=== PATIENT | female | born 1950 | race Caucasian/White ===

== ENCOUNTER → 2016-08-25 | Outpatient (CLI) | payer OTHER | LOC: CIMAGING 10:19 | DX: Z12.31 Encounter for screening mammogram for malignant neoplasm of breast (principal) | CPT/HCPCS: G0202 ==

== ENCOUNTER → 2017-03-31 | Outpatient (CLI) | payer OTHER | LOC: CIMAGING 14:15 | PROVIDERS: ATTEND Internal Medicine Cardiovascular Disease | DX: R07.9 Chest pain, unspecified (principal) | CPT/HCPCS: 75571-PO ==

== ENCOUNTER 2017-04-07 07:44 | Inpatient (IN) | payer OTHER ==
[2017-04-07] MEDS ORDERED: NS 1,000 ML IV ONE (07:46)
[2017-04-07] MEDS ORDERED: FAMOTIDINE 20 MG TAB PO ONE (07:46)
[2017-04-07] MEDS ORDERED: DIAZEPAM 5 MG TAB PO ONE (07:46)
[2017-04-07] MEDS ORDERED: ASPIRIN EC 325 MG TAB PO ONE ×2 (07:46→08:32)
[2017-04-07] MEDS ORDERED: diphenhydrAMINE 25 MG CAP PO ONE ×2 (07:46→08:32)
--- NOTE | 2017-04-07 08:18 | CPEKG ---
Heart Rate: 71 RR Interval: 845 P-R Interval: 160 QRSD Interval: 96 QT Interval: 416 QTC Interval: 453 P Clinton: 64 QRS Clinton: 4 T Wave Clinton: 46 EKG Severity - NORMAL ECG - EKG Impression: SINUS RHYTHM Electronically Signed By: Remigio Miller 07-Apr-2017 09:29:25
[2017-04-07] MEDS ORDERED: FAMOTIDINE 20 MG TAB ONE (08:32)
[2017-04-07] MEDS ORDERED: DIAZEPAM 5 MG TAB ONE (08:32)
[2017-04-07 08:35] LABS: PLATELET COUNT 311 10^3/uL (150-400)
[2017-04-07 08:45] LABS: INR 0.92 (0.83-1.16); PROTIME(PATIENT) 12.6 SEC (12.0-15.0)
[2017-04-07] MEDS ORDERED: fentaNYL 100 MCG/2 ML INJ ONE (08:48)
[2017-04-07] MEDS ORDERED: VERAPAMIL 5 MG/2 ML VIAL ONE (08:48)
[2017-04-07] MEDS ORDERED: HEPARIN 10,000 UNIT/10 ML MDV ONE (08:48)
[2017-04-07] MEDS ORDERED: LIDOCAINE 1% 300 MG/30 ML SDV ONE (08:48)
[2017-04-07] MEDS ORDERED: MIDAZOLAM 2 MG/2 ML VIAL ONE (08:48)
[2017-04-07] MEDS ORDERED: IOPAMIDOL (ISOVUE-370) 150 ML BTL IV ONE (08:49)
--- NOTE | 2017-04-07 09:27 | PDHPUP ---
History & Physical Update H&P update statement: This history and physical update is based on an assessment of the patient which was completed after admission or registration (within 24 hours), but prior to the surgery/procedure.
--- NOTE | 2017-04-07 09:27 | PDPROPOC ---
Sedation Plan of Care Sedation Plan of Care: vital signs stable, mental status noted, patient educated of risks, benefits, alternatives, patient can tolerate sedation ASA Classification: ASA 2 Planned drugs: fentanyl, midazolam Mallampati Score: Class 2 Mallampati Reference Image: Patient passed 3-3-2 rule?: Yes
[2017-04-07] MEDS ORDERED: NITROGLYCERIN 0.4 MG BTL SL PRN (10:48)
[2017-04-07] MEDS ORDERED: ATROPINE SULFATE 1 MG/10 ML SYR IVP PRN (10:48)
[2017-04-07] MEDS ORDERED: ONDANSETRON 4 MG/2 ML VIAL IVP PRN (10:48)
--- NOTE | 2017-04-07 10:54 | PDDXCAT ---
Diagnostic Cath Note - . Date: 04/07/17 Pattern Generator Operator: Serjio Indication: CCC Class III and IV angina on medical treatment - Procedure Access: right wrist Procedure: left heart catheterization, coronary angiography - Materials Left Heart Cath size: 5F Left Heart Cath materials: pigtail, other (Site-Seer4) - Findings-Left Heart Catheterization LM: 80% distal stenosis LAD: unobstructed LCX: unobstructed RCA: dominant:30% mid RCA EDP: 15 mmHg LVEF: 70 Wall motion: normal. Dilitation of the ascending aorta. Complications: none Closure method: TR Band Assessment: Critical Left main disease with crescendo angina. Normal LV systolic function. Dilation of the aorta. Plan: Surgical consultation. Patient Problems: Problems Problem Status Onset Left main coronary artery disease Acute Angina pectoris associated with type 2 diabetes mellitus Acute Angina pectoris Acute
[2017-04-07] MEDS ORDERED: NS 1,000 ML IV SCH (11:00)
--- NOTE | 2017-04-07 13:23 | GCON ---
[f rep st] CONSULTATION DATE OF CONSULTATION: 04/07/2017 PREOPERATIVE DIAGNOSES: 1. Unstable angina pectoris with severe left main disease. 2. Moderate enlargement of the ascending aorta, CT scan pending. 3. Diabetes mellitus, on metformin. Last dose on the evening of 04/06. 4. Obesity. 5. Hypertension. 6. Hypercholesterolemia. RECOMMENDATIONS: This patient should undergo coronary artery revascularization with possible resecti on of ascending aorta if appropriate. We will await the results of her CT scan. She is currently st able without chest pain at rest. Given her coronary anatomy and crescendo angina pattern, she should undergo resection of her aorta if appropriate. She did have metformin yesterday evening; otherwise, we would proceed with surgery today. Given her stable situation, we will keep her in-house and proc eed with surgery based on surgical scheduling availability. Risks and complications were reviewed at length with the patient, including bleeding, infection, stroke, heart attack, and ; all less th an 1%. Surgery will be performed by one of [facility]'s surgeons, and they will call with scheduling. Al ternatives include medical therapy, although in this situation, surgery is the 1st option and most ap propriate. The patient was advised of the same. She was advised that stenting is not often done in this situation and that the results are better with bypass surgery, both short and long-term. CHIEF COMPLAINT: A 67-year-old female with a strong family history of coronary disease in her mother , who had coronary disease at age 60. She had crescendo angina symptoms, had abnormal stress test, a nd underwent diagnostic left heart catheterization by Dr. Bassett, which showed distal left main hig h-grade stenosis. Right coronary artery had moderate disease. LV function was impaired. Echo is pe nding. CT scan of the aorta is pending. The cath revealed moderate enlargement of the ascending aor ta on angiography and will be confirmed with CT scanning and addressed appropriately. MEDICATIONS: Aspirin, Crestor, hydrochlorothiazide, lisinopril, and metformin. ALLERGIES: Demerol, no reaction documented. PHYSICAL EXAMINATION: VITAL SIGNS: Blood pressure is 150/94, pulse 86, respirations 14, nonlabored. O2 sat was 92% on room air. HEENT: Normocephalic PERRLA, EOMI. NECK: Without bruit, adenopathy, or thyromegaly. HEART: Rate regular without murmur, S3, or S4. LUNGS: Clear. ABDOMEN: Soft, non tender. Bowel sounds are active. RECTAL/GENITAL: Deferred. EXTREMITIES: Pedal pulses are 1+. No edema. No varicosities. /[id number]/MODL
[2017-04-07] MEDS ORDERED: IOPAMIDOL (ISOVUE 370) 100 ML BTL IV ONE (13:27)
--- NOTE | 2017-04-07 13:58 | ECHO ---
[email or web address] [address] Main: [phone] Fax: Transthoracic Echocardiogram Name: KEATON CAMP MR#: [id number] Study Date: 04/07/2017 Study Time: 11:36 AM Date of : 1950 Age: 67 year(s) Height: 167.6 cm (66 in.) Weight: 88.45 kg (195 lb.) BSA: 1.98 m2 Gender: Female Examination: Echo Indication: Eval AV structure with dilitation of the root/pre op CABG Image Quality: Contrast: Requested by: Dominic Bassett BP: 139 mmHg/65 mmHg Heart Rate: Rhythm: Indication: Eval AV structure with dilitation of the root/pre op CABG Procedure Staff Clinical Laboratory Service Teacher: Clotilde Nath Reading Physician: Dominic Bassett Requesting Provider: Conclusions: No pericardial effusion. Concentric left ventricular hypertrophy. Ejection fraction 60-65%. Calcified mitral valve annulus. Trileaflet aortic valve. Measurements: Chambers Valvular Assessment AV/MV Valvular Assessment TV/PV Normal Normal Normal Name Value Range Name Value Range Name Value Range Ao Nayely (MM): 2.8 cm (2.2 cm-3.7 AV meanP mmHg ( - ) TR Vmax: 1.89 mm/s ( - ) cm) MV E Vmax: 0.76 m/s ( - ) TR PGmax: 14 mmHg ( - ) IVSd (2D): 0.9 cm (0.6 cm-1.1 MV A Vmax: 0.73 m/s ( - ) syst. PAP: 19 mmHg ( - ) cm) MV E/A: 1.04 ( - ) LVDd (2D): 3.7 cm (3.9 cm-5.3 cm) LVDs (2D): 2.5 cm (2.1 cm-4 cm) LVPWd (2D): 0.9 cm ( - ) LVEF (2D): 64 (>=54 %) EF Range: 60-65 % Continued Measurements: Chambers Valvular Assessment AV/MV Valvular Assessment TV/PV Name Value Name Value Name Value LADs: 3.3 cm MV E' Septal: 0.06 m/s CVP (est.): 5 mmHg LADs Lon.0 cm MV E/E' Septal: 12.70 LA Area: 17.7 cm2 MV E/E' Lateral: 8.80 Additional Vessels Patient: KEATON CAMP Study Date: 04/07/2017 Page 1 of 2 11:36 AM Name Value Ao Ascendin.3 cm Findings: Left Ventricle: Normal size left ventricle. Mild concentric LV hypertrophy. Normal global systolic LV function. The ejection fraction is estimated to be 60-65 %. Right Ventricle: Normal size right ventricle. Left Atrium: The left atrium is normal in size. Right Atrium: The right atrium is normal in size. Mitral Valve: Trivial mitral valve regurgitation. Calcification of the posterior mitral leaflet.. Aortic Valve: The aortic valve is normal in appearance and function. Tricuspid Valve: The tricuspid valve is normal in appearance and function. Mild tricuspid regurgitation is present. Pulmonic Valve: The pulmonic valve is normal in appearance and function. Aorta: Normal size aortic root measuring 2.8 cm. Normal size ascending aorta measuring 3.3 cm. Pericardium: No pericardial effusion. (No Signature Object) Patient: KEATON CAMP Study Date: 04/07/2017 Page 2 of 2 11:36 AM [id number]
[2017-04-07] MEDS: METOPROLOL TARTRATE 50 MG TAB PO SCH ×2 (14:50→21:58)
[2017-04-07] MEDS: HEPARIN/DEXTROSE 500 ML IV SCH (15:04)
[2017-04-08] MEDS: ATORVASTATIN CALCIUM 40 MG TAB PO SCH (08:47)
[2017-04-08] MEDS: METOPROLOL TARTRATE 50 MG TAB PO SCH (08:47)
--- NOTE | 2017-04-08 10:11 | ASMTCASEMG ---
Living Arrangements What is your living Answers: With Spouse arrangement? Who do you live with? Type Of Residence What kind of residence do Answers: House you live in? Discharge Plan Comments Coordination Status Comments Notes: Pt is a 67 y/o female that will have an open heart surgery tomorrow. Needs are TBD at this time. CM to follow for d/c needs. Plan: TBD Date Signed: 04/08/2017 10:11 AM Electronically Signed By:SEAN De La O
[2017-04-08] MEDS: HEPARIN/DEXTROSE 500 ML IV SCH (10:23)
[2017-04-08] MEDS ORDERED: D50W 25 GM/50 ML SYR IVP PRN (11:44)
[2017-04-08] MEDS: LISINOPRIL 40 MG TAB PO SCH (13:02)
[2017-04-08] MEDS: ROSUVASTATIN CALCIUM 20 MG TAB PO SCH (13:03)
[2017-04-08] MEDS: METOPROLOL SUCCINATE XR 25 MG TAB PO SCH (13:06)
[2017-04-08] MEDS: INSULIN LISPRO 100 UNIT/ML SC SCH ×2 (13:07→17:58)
--- NOTE | 2017-04-08 14:16 | SOAPPROG ---
SOAP Progress Note Assessment/Plan: Assessment: 1. Left main coronary artery disease. 2. Diabetes 3. Hyperlipidemia 4. Hypertension Impression: Awaiting coronary artery bypass grafting. Patient is delayed secondary to metformin. She is free of angina or heart failure. Stable on heparin. 04/08/17 14:15 Subjective: Cardiac review of systems is negative for chest pain, shortness of breath, PND , orthopnea, palpitations, syncope, near syncope, edema. Objective: Vital Signs Temp Pulse Resp BP Pulse Ox 36.7 C 53 L 20 139/73 H 95 04/08/17 07:28 04/08/17 13:00 04/08/17 13:00 04/08/17 13:00 04/08/17 13:00 Laboratory Results 04/07/17 08:25 04/07/17 08:25 04/07/17 04/08/17 04/09/17 05:59 05:59 05:59 Intake Total 1223.7 Output Total 1 Balance 1222.7 PT 12.6 SEC (12.0-15.0) 04/07/17 08:25 INR 0.92 (0.83-1.16) 04/07/17 08:25 Laboratory Tests 04/07/17 08:25 LDL Cholesterol, Calc 82 Physical Exam - Physical Exam General Appearance: alert, no apparent distress EENT: PERRL/EOMI Neck: non-tender, full range of motion, supple Respiratory: chest non-tender, lungs clear Cardiac/Chest: normal peripheral pulses, regular rate, rhythm, No gallop, No JVD Abdomen: normal bowel sounds, non-tender, soft Back: Normal inspection Skin: warm/dry Lymphatic: no adenopathy Extremities: normal range of motion Neuro/Psych: no motor/sensory deficits, alert ICD10 Worksheet Patient Problems: Problems Problem Status Onset Left main coronary artery disease Acute Angina pectoris associated with type 2 diabetes mellitus Acute Angina pectoris Acute Past Medical History - Medical/Surgical History Hx Asthma: No Hx Chronic Respiratory Disease: No Hx Cardiac Disease: Yes Hx Diabetes: Yes Hx Renal Disease: No Hx Alcoholism: No Hx Cirrhosis: No Hx HIV/AIDS: No Hx Splenectomy or Spleen Trauma: No Other PMH: lap kyree, tonsillectomy, knee surgery, diabetes - Social History Smoking Status: Never smoked Review of Systems - Review of Systems Constitutional: no symptoms reported EENTM: no symptoms reported Respiratory: no symptoms reported Cardiac: no symptoms reported Gastrointestinal/Abdominal: no symptoms reported Genitourinary: no symptoms Musculoskelatal: no symptoms Skin: no symptoms Neurological: no symptoms Hematologic/Lymphatic: no symptoms reported Immunologic/allergic: no symptoms reported
[2017-04-08] MEDS: MUPIROCIN 2% 22 GM OINT NS SCH (20:52)
[2017-04-08] MEDS ORDERED: TEMAZEPAM 15 MG CAP PO PRN (21:00)
[2017-04-08] MEDS ORDERED: CHLORHEXIDINE GLUC HIBICLENS 118 ML BTL TP SCH (21:00)
[2017-04-09] MEDS ORDERED: TRANEX ACID 1,000 MG/NS 100 ML IV ONE ×2 (06:00)
[2017-04-09] MEDS ORDERED: CITRATE DEXTROSE SOLN 500 ML BAG MISC ONE (06:00)
[2017-04-09] MEDS ORDERED: VERAPAMIL 5 MG, NITROGLYCERIN 2.5 MG, HEPARIN 500 UNIT, SODIUM BICARBONATE 0.2 MEQ in L... MISC ONE (06:00)
[2017-04-09] MEDS ORDERED: SODIUM BICARBONATE 20 MEQ, LIDOCAINE 1% 10 ML in NORMOSOL-R 1,000 ML MISC ONE (06:00)
[2017-04-09] MEDS ORDERED: PAPAVERINE HCL 60 MG in NS 100 ML IV ONE (06:00)
[2017-04-09] MEDS ORDERED: AMINOCAPROIC ACID 5 GM/20 ML VIAL IV ONE (06:00)
[2017-04-09] MEDS ORDERED: INSULIN REGULAR HUMAN 100 UNIT in NS 100 ML IV ONE (06:00)
[2017-04-09] MEDS ORDERED: ceFAZolin 2 GM/SWFI 2 GM/20 ML SYR IVP ONE (06:00)
[2017-04-09] MEDS ORDERED: MANNITOL 25% 12.5 GM/50 ML VIAL IVP ONE (06:00)
[2017-04-09] MEDS ORDERED: TEMAZEPAM 15 MG CAP PO PRN (06:00)
[2017-04-09] MEDS ORDERED: PHENYLEPHRINE HCL 50 MG in NS 250 ML IV ONE (06:00)
[2017-04-09] MEDS ORDERED: ALBUMIN 5% 250 ML BOTTLE IV ONE ×2 (06:28→15:40)
[2017-04-09] MEDS ORDERED: PROTAMINE SULFATE 50 MG/5 ML VIAL IVP ONE (06:28)
[2017-04-09] MEDS ORDERED: MILRINONE/DEXTROSE/100 ML BAG IV ONE (06:29)
[2017-04-09] MEDS ORDERED: NA BICARBONATE 50 MEQ/50 ML VIAL ONE (06:29)
[2017-04-09] MEDS ORDERED: HEPARIN 10,000 UNIT/10 ML MDV ONE (06:29)
[2017-04-09] MEDS ORDERED: LIDOCAINE 2% 100 MG/5 ML SYR ONE (06:29)
[2017-04-09] MEDS ORDERED: DOPamine/DEXTROSE/250 ML BAG IV ONE (06:29)
[2017-04-09] MEDS ORDERED: CALCIUM CHLORIDE 1 GM/10 ML INJ ONE (06:29)
[2017-04-09] MEDS ORDERED: CITRATE DEXTROSE SOLN 500 ML BAG ONE (06:29)
[2017-04-09] MEDS ORDERED: AMIODARONE HCL 150 MG/3 ML VIAL ONE (06:30)
[2017-04-09] MEDS ORDERED: niCARdipine/NACL/200 ML BAG IV ONE (06:30)
[2017-04-09] MEDS ORDERED: methylPREDNISolone SOD SUCC 1 GM/8 ML VIAL ONE (06:30)
[2017-04-09] MEDS ORDERED: MAGNESIUM SULFATE 1 GM/2 ML VIAL ONE (06:30)
[2017-04-09] MEDS ORDERED: ceFAZolin 1 GM VIAL ONE (06:30)
[2017-04-09] MEDS ORDERED: ADENOSINE 6 MG/2 ML VIAL ONE (06:30)
[2017-04-09] MEDS ORDERED: TRANEXAMIC ACID 1,000 MG/10 ML VIAL ONE (06:31)
[2017-04-09] MEDS: LISINOPRIL 40 MG TAB PO SCH (10:14)
[2017-04-09] MEDS: ATORVASTATIN CALCIUM 40 MG TAB PO SCH (10:14)
[2017-04-09] MEDS: INSULIN LISPRO 100 UNIT/ML SC SCH (10:14)
[2017-04-09] MEDS: ROSUVASTATIN CALCIUM 20 MG TAB PO SCH (10:15)
[2017-04-09] MEDS: METOPROLOL TARTRATE 50 MG TAB PO SCH (10:15)
--- NOTE | 2017-04-09 11:31 | PDHPUP ---
History & Physical Update H&P update statement: This history and physical update is based on an assessment of the patient which was completed after admission or registration (within 24 hours), but prior to the surgery/procedure. H&P changes: CTA neg for aortic dilatation. Plan CABG2 with Dr Logan
[2017-04-09] MEDS: MUPIROCIN 2% 22 GM OINT NS SCH ×2 (11:35→22:11)
[2017-04-09] MEDS ORDERED: MIDAZOLAM 2 MG/2 ML VIAL IVP ONE ×2 (11:43→11:45)
--- NOTE | 2017-04-09 11:43 | PDANEPAE ---
ANE History of Present Illness 67 yo for cabg LM cad nl lv htn niddm ANE Past Medical History - Cardiovascular History Hx Hypertension: Yes Hx Chest Pain: Yes Hx Coronary Artery / Peripheral Vascular Disease: Yes - Pulmonary History Hx Oxygen in Use at Home: No Hx Sleep Apnea: No Sleep Apnea Screening Result - Last Documented: Negative - Endocrine History Hx Diabetes: Yes - Chronic Pain History Chronic Pain: Yes ANE Review of Systems Review of Systems: ANE Patient History - Allergies Allergies/Adverse Reactions: meperidine HCl [From Demerol] Allergy (Intermediate, Verified 04/07/17 07:48) Other-Enter Comments - Home Medications Home medications: home medication list seen and reviewed Home Medications: Aspirin EC [Aspirin EC 81 mg (*)] 81 mg PO DAILY 04/06/17 [Last Taken 04/06/17 12:00] Hydrochlorothiazide [HCTZ (*)] 12.5 mg PO DAILY 04/06/17 [Last Taken 04/06/17 21 :00] Lisinopril [Zestril 40 mg (*)] 40 mg PO DAILY 04/06/17 [Last Taken 04/06/17 21: 00] Metoprolol Succinate Xr [Toprol Xl 25 mg (*)] 25 mg PO DAILY 04/06/17 [Last Taken 04/06/17 08:00] Rosuvastatin Calcium [Crestor 20mg (*)] 20 mg PO DAILY 04/06/17 [Last Taken 21:00] metFORMIN HCL [Glucophage 1000 mg] 1,000 mg PO DAILY 04/06/17 [Last Taken 08:00] metFORMIN HCL [Glucophage 500 mg (*)] 500 mg PO DAILY18 04/06/17 [Last Taken 17:00] - NPO status NPO Status: no food or drink >8 hours NPO Since - Liquids (Date): 04/08/17 NPO Since - Liquids (Time): 23:15 NPO Since - Solids (Date): 04/08/17 NPO Since - Solids (Time): 21:10 - Smoking Hx Smoking Status: Never smoked ANE Labs/Vital Signs - Labs Result Diagrams: 04/09/17 03:34 04/09/17 03:34 - Vital Signs Blood Pressure: 160/81 Heart Rate: 71 Respiratory Rate: 16 O2 Sat (%): 96 Height: 5 ft 6 in Weight: 87.5 kg ANE Physical Exam - Airway Neck exam: FROM Mallampati Score: Class 2 Mouth exam: normal dental/mouth exam - Pulmonary Pulmonary: no respiratory distress - Cardiovascular Cardiovascular: regular rate and rhythym - ASA Status ASA Status: III ANE Anesthesia Plan Anesthesia Plan: general endotracheal anesthesia Lines/Monitors: arterial line, central line, DIANA
[2017-04-09] MEDS ORDERED: VANCOMYCIN 1 GM VIAL ONE ×2 (11:50→13:02)
[2017-04-09] MEDS ORDERED: fentaNYL 250 MCG/5 ML INJ ONE (11:53)
[2017-04-09] MEDS ORDERED: PROPOFOL/EMULSION 500 MG/50 ML BOTTLE IV ONE (11:53)
[2017-04-09] MEDS ORDERED: REMIFENTANIL HCL 1 MG VIAL ONE (11:53)
[2017-04-09] MEDS ORDERED: DEXAMETHASONE 4 MG/ML VIAL ONE ×2 (14:08)
[2017-04-09] MEDS ORDERED: ROCURONIUM 100 MG/10 ML VIAL ONE (14:08)
[2017-04-09] MEDS ORDERED: epHEDrine SULFATE 10 MG/ML SYR ONE ×2 (14:27→14:29)
[2017-04-09] MEDS ORDERED: HYDROmorphONE/DILAUDID 2 MG/ML INJ ONE (14:34)
[2017-04-09] MEDS ORDERED: DEXMEDETOMIDINE HCL 400 MCG in NS 100 ML IV SCH (15:30)
[2017-04-09] MEDS ORDERED: DEXMEDETOMIDINE IN 0.9 % NACL 100 ML IV SCH (15:30)
[2017-04-09] MEDS ORDERED: ONDANSETRON 4 MG/2 ML VIAL ONE (15:34)
[2017-04-09] MEDS ORDERED: SUGAMMADEX SODIUM 200 MG/2 ML VIAL IVP ONE (15:35)
[2017-04-09] MEDS ORDERED: ceFAZolin 1 GM/5 ML SYR ONE (15:40)
--- NOTE | 2017-04-09 15:54 | POSTOPPROG ---
Post Op Note Date of Operation: 04/09/17 Surgeon: Sherlyn Logan Community Service Director: Yesenia Zamora PA-C Anesthesia: GET(General Endotracheal) Pre-op Diagnosis: Severe left main coronary artery stenosis Post-op Diagnosis: Severe left main coronary artery stenosis Procedure: CABG x 2 (LUNA - LAD, SVG - OM) Findings: LUNA excellent in size with excellent flows. LAD 2mm, OM 1.5mm. Inf/Abcess present in the surg proc area at time of surgery?: No EBL: 100-500 Complications: None Drains: Other (CT x 2 (mediastinal and left pleural)) Specimen(s): None
[2017-04-09] MEDS ORDERED: LACTULOSE 20 GM/30 ML UDCUP PO PRN (16:03)
[2017-04-09] MEDS ORDERED: ALBUMIN 5% 250 ML IV PRN (16:03)
[2017-04-09] MEDS ORDERED: CEPACOL LOZENGE PO PRN (16:03)
[2017-04-09] MEDS ORDERED: POLYETHYLENE GLYCOL 3350 17 GM PKT PO PRN (16:03)
[2017-04-09] MEDS ORDERED: METOCLOPRAMIDE 10 MG/2 ML VIAL IVP PRN (16:03)
[2017-04-09] MEDS ORDERED: PANTOPRAZOLE SODIUM 40 MG VIAL IVP ONE (16:03)
[2017-04-09] MEDS ORDERED: ONDANSETRON DISINTEGRATING 4 MG TAB PO PRN (16:03)
[2017-04-09] MEDS ORDERED: ACETAMINOPHEN 325 MG TAB PO PRN (16:03)
[2017-04-09] MEDS ORDERED: BISACODYL 10 MG SUPP PR PRN (16:03)
[2017-04-09] MEDS ORDERED: SODIUM CL NASAL 45 ML BTL EACHNARE PRN (16:03)
[2017-04-09] MEDS ORDERED: MAGNESIUM HYDROXIDE 30 ML UDCUP PO PRN (16:03)
[2017-04-09] MEDS ORDERED: MAGNESIUM SULF 2 GM/WATER 50 ML IV ONE (16:03)
[2017-04-09] MEDS ORDERED: ONDANSETRON 4 MG/2 ML VIAL IVP PRN (16:03)
[2017-04-09] MEDS ORDERED: ACETAMINOPHEN 650 MG SUPP PR PRN (16:03)
[2017-04-09] MEDS ORDERED: POTASSIUM Cl (KCl) 50 ML IV PRN (16:03)
[2017-04-09] MEDS ORDERED: NS 1,000 ML IV SCH (16:15)
[2017-04-09] MEDS ORDERED: INSULIN REGULAR HUMAN 100 UNIT in NS 100 ML IV SCH (16:30)
--- NOTE | 2017-04-09 16:49 | CPEKG ---
Heart Rate: 80 RR Interval: 750 P-R Interval: 184 QRSD Interval: 104 QT Interval: 436 QTC Interval: 503 P Axtell: 42 QRS Axtell: 10 T Wave Axtell: 3 EKG Severity - ABNORMAL ECG - EKG Impression: SINUS RHYTHM EKG Impression: TALL R WAVE IN V2, CONSIDER RVH OR PMI EKG Impression: BORDERLINE T WAVE ABNORMALITIES EKG Impression: BORDERLINE PROLONGED QT INTERVAL Electronically Signed By: Remigio Miller 11-Apr-2017 07:29:50
--- NOTE | 2017-04-09 18:04 | POSTANESTH ---
Post Anesthetic Evaluation Cardiovascular Status: Normal, Stable Respiratory Status: Tx Decrease in SpO2 Level of Consciousness/Mental Status: Can Participate in Eval Pain Control: Adequate, Prn Tx Ordered Nausea/Vomiting Control: Adequate, Prn Tx Ordered Complications Possibly Related to Anesthesia: None Noted
[2017-04-09] MEDS: ceFAZolin 2 GM/DEXTROSE 100 ML IV SCH (19:20)
[2017-04-09] MEDS: fentaNYL 100 MCG/2 ML INJ IVP PRN (22:48)
--- NOTE | 2017-04-09 23:54 | GOP ---
[f rep st] OPERATIVE REPORT DATE OF OPERATION: 04/09/2017 SURGEON: Sherlyn Logan MD RETAIL ANALYST: Yesenia Zamora, MURIEL ANESTHESIA: General. PREOPERATIVE DIAGNOSIS: Severe left main coronary artery stenosis. POSTOPERATIVE DIAGNOSIS: Severe left main coronary artery stenosis. PROCEDURE PERFORMED: 1. Median sternotomy. 2. Endoscopic saphenous vein harvesting from the left lower extremity. 3. Epiaortic ultrasound. 4. Total cardiopulmonary bypass. 5. Coronary artery bypass grafting x2 (left internal mammary artery to left anterior descending, sap henous vein graft to obtuse marginal). 6. Placement of 2 temporary right ventricular epicardial pacing wires. FINDINGS: The LUNA was noted to be excellent in size with excellent flows. The LAD was approximatel y 2 mm in size while the largest OM was approximately 1.5 mm in size. SPECIMENS: None. ESTIMATED BLOOD LOSS: 500 mL. INDICATIONS: The patient is a 67-year-old female who presented to the hospital secondary to progress nancy chest pain on exertion. As a result of this discomfort, she ultimately underwent cardiac cathete rization which showed severe stenosis of the left main coronary artery and given this diagnosis, she was referred for surgical revascularization. The patient was seen preoperatively where the risks, be nefits and alternatives were detailed to her and she wished to proceed with surgical vascularization and informed consent was obtained. DESCRIPTION OF PROCEDURE: The patient was brought into the operating room and placed on the operatin g room table in the supine position. After general anesthesia was induced, standard monitoring lines as well as a Mcfarland catheter were placed. The patient's chest, abdomen, and bilateral lower extremit ies were then prepped and draped in the standard surgical fashion. A surgical timeout was performed, and administration of preoperative antibiotic prophylaxis given prior to initiating the procedure. A standard median sternotomy incision was made and the sternum was divided using a pneumatic saw. Th e left pleural space was entered, then the left internal mammary artery was harvested from its origin to its bifurcation using electrocautery and a no-touch technique. Concurrently, the left greater sa phenous vein was harvested using an endoscopic harvesting technique. The vein was prepared with gent le distention and ligation of its side branches. The left incisions were closed in 2 layers with abs orbable suture. The pericardium was opened and the patient was systemically heparinized. The internal mammary artery was then divided distally and the remnant was ligated using hemoclips. There was brisk flow noted t hrough the mammary vessel and the pedicle was controlled with a bulldog clamp. The left side of the pericardium was then opened to accommodate the mammary pedicle. After assuring a plaque-free cannulation and cross-clamp zone utilizing the epiaortic ultrasound, the ascending aorta was cannulated through 2 concentric purse-string sutures, which were secured using a Krystian tourniquet. A dual-stage venous cannula was then inserted into the right atrial appendage th rough a purse-string suture and also secured using a Krystian tourniquet. Cardiopulmonary bypass was t hen initiated and the patient was passively cooled. A retrograde coronary sinus catheter was placed through a separate right atrial purse-string as well as an antegrade cardioplegia needle in the ascen ding aorta. The aorta was then cross-clamped. Antegrade and retrograde cold-blood cardioplegia was then administered and continued intermittently throughout the procedure. Diastolic arrest was achiev ed, and the aortic needle was converted to a vent. The obtuse marginal targets were all inspected an d the largest OM target chosen for bypass. An arteriotomy was made on this vessel and an end-to-side anastomosis fashioned with a reverse saphenous vein graft using 7-0 Prolene suture in running fashio n. The LAD target was then identified. An arteriotomy was made on the vessel and an end-to-side kyler stomosis was fashioned with the free end of the internal mammary artery using 8-0 Prolene suture in r unning fashion. The bulldog clamp was then released from the KISHOR and flow re-established to the LAD. The patient was then re-warmed, and the aortic cross-clamp was removed. The retrograde catheter was removed as well and its purse-string suture tied down. A partial-occluding clamp was then placed on the ascending aorta. The heart then began to beat in normal sinus rhythm. One aortotomy was then ma de using a knife and punch to perform the proximal anastomosis. The proximal anastomosis was created in a side-to-end configuration using 5-0 Prolene suture in running fashion to secure the vein graft to the aorta. The cross-clamp was then removed, bypass grafts de-aired, and flow re-established to t he bypass coronary artery. Two temporary right ventricular epicardial pacing wires were then placed and brought to the skin surface at the left costal margin. The patient was then weaned from cardiopulmonary bypass without mechanical support. Systemic heparin ization was then reversed with protamine sulfate. The venous cannula was removed and its purse-strin g suture tied. The aortic cannula was then removed and its purse-string sutures were both tied. All suture lines and surgical sites were made hemostatic. A 36-Faroese mediastinal and left pleural ches t tube were placed. The sternum was then closed using stainless steel wires in a simple and figure-o f-eight fashion. The fascia at the linea was then closed using [id number] #1 Vicryl sutures. T he presternal fascia, subcutaneous tissues, and subcuticular tissues were all closed in multiple laye rs with absorbable suture. Sterile dressings were applied and the chest tubes were connected to suct ion drainage. The patient was extubated in the operating room and transported to the ICU in stable condition after tolerating the procedure well. At the end of the operation, all sponge, instrument, and needle counts were correct. DRAINS: 36-Faroese chest tube x2 (mediastinal and left pleural). COMPLICATIONS: None. /[id number]/MODL
[2017-04-10] MEDS: fentaNYL 100 MCG/2 ML INJ IVP PRN (00:22)
[2017-04-10] MEDS: HYDROCODONE/APAP 5/325 TAB PO PRN ×3 (02:13→11:05)
[2017-04-10] MEDS: ceFAZolin 2 GM/DEXTROSE 100 ML IV SCH ×3 (04:57→20:04)
[2017-04-10 06:00] LABS: PLATELET COUNT 222 10^3/uL (150-400)
--- NOTE | 2017-04-10 08:50 | SOAPPROG ---
SOAP Progress Note Assessment/Plan: Assessment: POD#1 CABG x 2 (LUNA-LAD, SV-OM1), EVH left thigh Sx CAD with preserved LV systolic fx - s/p CABG. Extubated in the OR. Hemodynamically stable early postop course. No vasoactive support, dysrhythmias , or significant fluid overload. Secondary prevention with ASA, BB uptitrated as tolerated, and home statin (hx adverse rxn to lipitor and zocor) when eating well. Acute expected blood loss anemia - Stable. No blood products transfused. DM2 - Controlled on Metformin. Postop hyperglycemia managed with low dose insulin gtt. Transition to SSI imminent. Resumption of OHA once appetite improves. Plan: Routine POD#1 orders re lines, wires, orals and mobility. Keep CTs to suction at rest. Begin daily diuresis. Begin metoprolol 25 mg BID. Tx to PCU later today. 04/10/17 08:46 Subjective: Feeling a bit overwhelmed. Pain more than anticipated. Nervous about moving without direction and assistance. OOB without dizziness. No nausea. Planning on smoothie for breakfast. Objective: Vital Signs Temp Pulse Resp BP Pulse Ox 37 C 95 18 112/54 L 97 04/10/17 06:00 04/10/17 07:00 04/10/17 07:00 04/10/17 07:00 04/10/17 07:00 Laboratory Results 04/10/17 05:50 04/10/17 05:50 04/09/17 04/10/17 04/11/17 05:59 05:59 05:59 Intake Total 885 496 90 Output Total 1420 177 Balance 885 -924 -87 PT 12.6 SEC (12.0-15.0) 04/07/17 08:25 INR 0.92 (0.83-1.16) 04/07/17 08:25 SR/ST. SBPs > 100. Excellent sats on 3 Lpm CXR-> Small left apical PTX, no pulm vasc congestion, crisp rt costophrenic angle, no undrained left pleural eff, lg gastric air No sig CTOP. + air leak with cough. Adequate fluid balance. Labs as expected. Physical Exam - Physical Exam General Appearance: alert, no apparent distress Respiratory: lungs clear (grossly), crackles (left base), other (CTs x 2 y-d to pleurovac, serosang drainage, no air leak with nl tidal, 1 chamber air leak with cough) Cardiac/Chest: regular rate, rhythm, other (Sternotomy and LLE venotomy dressings CDI. Vwires intact.) Abdomen: normal bowel sounds, non-tender, soft Skin: warm/dry Extremities: swelling (1+ gen) ICD10 Worksheet Patient Problems: Problems Problem Status Onset Acute blood loss anemia Acute Angina pectoris Acute Angina pectoris associated with type 2 diabetes mellitus Acute Left main coronary artery disease Acute S/P CABG x 2 Acute ~04/09/17
[2017-04-10] MEDS ORDERED: HYDROmorphone HCL/NS/PF 0.4 MG/2 ML SYR IVP PRN (09:04)
[2017-04-10] MEDS: PANTOPRAZOLE SODIUM 40 MG TAB PO SCH (09:14)
[2017-04-10] MEDS: ASPIRIN EC 325 MG TAB PO SCH (09:15)
[2017-04-10] MEDS ORDERED: METOPROLOL TARTRATE 25 MG TAB PO SCH ×2 (09:15→09:30)
[2017-04-10] MEDS ORDERED: FUROSEMIDE 40 MG/4 ML VIAL IVP ONE (09:19)
[2017-04-10] MEDS: MUPIROCIN 2% 22 GM OINT NS SCH ×2 (09:28→20:04)
[2017-04-10] MEDS ORDERED: ALBUMIN 5% 500 ML BOTTLE IV ONE (12:24)
[2017-04-10] MEDS ORDERED: ALBUMIN 5% 500 ML IV ONE ×2 (12:30→14:00)
[2017-04-10] MEDS: INSULIN LISPRO 100 UNIT/ML SC SCH ×2 (12:42→17:48)
[2017-04-10] MEDS ORDERED: DOPamine/DEXTROSE/250 ML BAG IV ONE (13:34)
[2017-04-10] MEDS: oxyCODONE IR 5 MG TAB PO PRN ×3 (15:20→22:12)
[2017-04-11] MEDS: ceFAZolin 2 GM/DEXTROSE 100 ML IV SCH (03:18)
[2017-04-11] MEDS: oxyCODONE IR 5 MG TAB PO PRN (03:18)
[2017-04-11 05:59] LABS: PLATELET COUNT 172 10^3/uL (150-400)
--- NOTE | 2017-04-11 09:03 | SOAPPROG ---
<Yesenia Zamora - Last Filed: 04/11/17 09:42> SOAP Progress Note Assessment/Plan: Assessment: POD#2 CABG x 2 (LUNA-LAD, SV-OM1), EVH left thigh Sx CAD with preserved LV systolic fx - s/p CABG. Extubated in the OR. Initiation of diuretic and BB yest compl by relative hypotension req IVF and low dose dopa support. Stable hemodynamics overnoc without renal insuff, dysrhythmias or sig fluid overload. Secondary prevention with ASA for now. Cautious reintroduction of BB this pm. Home statin (hx adverse rxn to lipitor and zocor) when eating well. Acute expected blood loss anemia - Stable. No blood products transfused. DM2 - Controlled on Metformin. Postop hyperglycemia managed with low dose insulin gtt, transitioning to SSI. Resumption of OHA next 1-2 days. Plan: Vwires removed. CTs to WS. Consider removal if no sig dump after next walk. Stop dopa. Accept SBP > 90. Advance diet. Cont inc activity as tolerated. Remove all dressings tomorrow. Likely can go to PCU later today. 04/11/17 09:02 Subjective: Feels ok. Improved pain control. Walk this am well tolerated. Not much appetite , but planning on ordering some breakfast. Objective: Vital Signs Temp Pulse Resp BP Pulse Ox 37.7 C 99 23 H 109/48 L 97 04/11/17 06:00 04/11/17 07:00 04/11/17 07:00 04/11/17 07:00 04/11/17 07:00 Laboratory Results 04/11/17 05:50 04/11/17 05:50 04/10/17 04/11/17 04/12/17 05:59 05:59 05:59 Intake Total 496 3458.9 Output Total 1420 1428 Balance -924 2030.9 PT 12.6 SEC (12.0-15.0) 04/07/17 08:25 INR 0.92 (0.83-1.16) 04/07/17 08:25 Dopa @ 3 mcg for SBP > 100. Holding SR/ST. Stable UOP and Cr. CXR-> Left PTX resolved. No pulm vasc congestion. Min basilar atelectasis. CTOP thin, nearing removal criteria. Physical Exam - Physical Exam General Appearance: alert, no apparent distress Respiratory: crackles (bases), other (CTs x 2 y-d to pleurovac, serosang drainage, no tidal, no air leak) Cardiac/Chest: regular rate, rhythm, other (Sternotomy and LLE venotomy siver dressings CDI. Vwire removed without difficulty.) Abdomen: normal bowel sounds, non-tender, soft Skin: warm/dry Extremities: swelling (trace-1+ gen) ICD10 Worksheet Patient Problems: Problems Problem Status Onset Acute blood loss anemia Acute Angina pectoris Acute Angina pectoris associated with type 2 diabetes mellitus Acute Left main coronary artery disease Acute S/P CABG x 2 Acute ~04/09/17 <Mike Maier - Last Filed: 04/11/17 16:30> SOAP Progress Note Assessment/Plan: Assessment: Pt seen and examined. Relevant data reviewed. Agree with the note above. Increase ambulation. Home in 2-3 days. Plan: 04/11/17 16:28 Objective: Vital Signs Temp Pulse Resp BP Pulse Ox 36.4 C 85 22 H 97/63 L 91 L 04/11/17 15:13 04/11/17 15:13 04/11/17 15:13 04/11/17 15:13 04/11/17 15:13 Laboratory Results 04/11/17 05:50 04/11/17 05:50 04/10/17 04/11/17 04/12/17 05:59 05:59 05:59 Intake Total 496 3458.9 421.5 Output Total 1420 1428 350 Balance -924 2030.9 71.5 PT 12.6 SEC (12.0-15.0) 04/07/17 08:25 INR 0.92 (0.83-1.16) 04/07/17 08:25
[2017-04-11] MEDS: INSULIN LISPRO 100 UNIT/ML SC SCH ×3 (09:17→17:46)
[2017-04-11] MEDS: SENNOSIDES/DOCUSATE SODIUM TAB PO SCH ×2 (09:17→20:02)
[2017-04-11] MEDS: PANTOPRAZOLE SODIUM 40 MG TAB PO SCH (09:17)
[2017-04-11] MEDS: ASPIRIN EC 325 MG TAB PO SCH (09:17)
[2017-04-11] MEDS: MUPIROCIN 2% 22 GM OINT NS SCH (09:18)
[2017-04-11] MEDS: traMADol 50 MG TAB PO PRN ×2 (10:40→19:56)
--- NOTE | 2017-04-11 17:23 | ASMTCMCOM ---
CM Note CM Note Notes: PT recommending HC; OT=SNF; CM to follow. Date Signed: 04/11/2017 05:22 PM Electronically Signed By:Loren Mendoza LCSW
[2017-04-11] MEDS: METOPROLOL TARTRATE 25 MG TAB PO SCH (22:58)
[2017-04-12] MEDS: traMADol 50 MG TAB PO PRN ×3 (02:50→20:32)
--- NOTE | 2017-04-12 08:19 | SOAPPROG ---
<Yesenia Zamora - Last Filed: 04/12/17 10:43> SOAP Progress Note Assessment/Plan: Assessment: POD#3 CABG x 2 (LUNA-LAD, SV-OM1), EVH left thigh Sx CAD with preserved LV systolic fx - s/p CABG. Extubated in the OR. Transient pressor support for relative hypotension s/p initiation of BB. No dysrhythmias or significant fluid overload. Secondary prevention with ASA and statin. Use of BB as allowed by BP. Acute expected blood loss anemia - Stable. No blood products transfused. DM2 - Controlled on Metformin. Postop hyperglycemia managed with low dose insulin gtt, transitioning to SSI. Resumption of OHA pending improved appetite and stable renal fx. Plan: Cont Metoprolol hold for SBP < 100. Cycle BPs q 2h thru morning. Maintenance IVF pending SBP < 90. No fluid restriction. Adjust analgesic regimen. Shower. Wean O2. Cont inc activity as tolerated. Dispo - Anticipate SNF vs home w [facility] on 04/12/17 08:17 Subjective: Feels weak and tired. Minimal appetite. Drinking to thirst. Sensitive (groggy/ sleepy) to narcs. At this point, believes she may need SNF and agreeable to discuss options with case management. Objective: Vital Signs Temp Pulse Resp BP Pulse Ox 36.6 C 81 17 82/42 L 84 L 04/12/17 07:22 04/12/17 07:22 04/12/17 07:22 04/12/17 07:22 04/12/17 08:08 Laboratory Results 04/11/17 05:50 04/12/17 05:30 04/11/17 04/12/17 04/13/17 05:59 05:59 05:59 Intake Total 3458.9 691.5 Output Total 1428 650 Balance 2030.9 41.5 PT 12.6 SEC (12.0-15.0) 04/07/17 08:25 INR 0.92 (0.83-1.16) 04/07/17 08:25 Holding SR ~80s. SBP last noc > 110 and dose of metop received with ensuing drop of BP into 80s. No sx. Recovery of BP into 90s by this am. Excellent sats on 2 Lpm and could likely wean to 1 liter. I/Os balanced. +3 kg overall. Sl bump in Cr, likely prerenal. Physical Exam - Physical Exam General Appearance: no apparent distress, other (Appears tired. Expresses little motivation to ambulate.) Respiratory: lungs clear Cardiac/Chest: regular rate, rhythm, other (Sternum grossly stable. Sternotomy and LLE venotomies CDI. Venotomy tract soft, flat) Abdomen: normal bowel sounds, non-tender, soft Skin: warm/dry Extremities: swelling (trace-1+ gen) ICD10 Worksheet Patient Problems: Problems Problem Status Onset Acute blood loss anemia Acute Angina pectoris Acute Angina pectoris associated with type 2 diabetes mellitus Acute Left main coronary artery disease Acute S/P CABG x 2 Acute ~04/09/17 <Mike Maier - Last Filed: 04/12/17 15:58> SOAP Progress Note Assessment/Plan: Assessment: Pt seen and records reviewed. Neuro intact. Breathing comfortably. Increase ambulation. Agree with note. Discharge Wednesday Plan: 04/12/17 15:57 Objective: Vital Signs Temp Pulse Resp BP Pulse Ox 36.5 C 83 16 85/46 L 96 04/12/17 11:54 04/12/17 11:54 04/12/17 11:54 04/12/17 11:54 04/12/17 11:54 Laboratory Results 04/12/17 13:28 04/12/17 05:30 04/11/17 04/12/17 04/13/17 05:59 05:59 05:59 Intake Total 3458.9 691.5 100 Output Total 1428 650 425 Balance 2030.9 41.5 -325 PT 12.6 SEC (12.0-15.0) 04/07/17 08:25 INR 0.92 (0.83-1.16) 04/07/17 08:25
[2017-04-12] MEDS: INSULIN LISPRO 100 UNIT/ML SC SCH ×3 (09:00→18:21)
[2017-04-12] MEDS: METOPROLOL TARTRATE 25 MG TAB PO SCH ×2 (09:01→20:34)
[2017-04-12] MEDS: ASPIRIN EC 81 MG TAB PO SCH (09:16)
[2017-04-12] MEDS: PANTOPRAZOLE SODIUM 40 MG TAB PO SCH (09:16)
[2017-04-12] MEDS: ROSUVASTATIN CALCIUM 20 MG TAB PO SCH (09:17)
[2017-04-12] MEDS: SENNOSIDES/DOCUSATE SODIUM TAB PO SCH ×2 (11:05→20:32)
--- NOTE | 2017-04-12 11:36 | ASMTCMCOM ---
CM Note CM Note Notes: CM spoke w/ OT and INA Rodriguez regarding d/c POC. Both are recommending SNF at this time. CM met w/ pt for dispo planning. CM informed pt of the recommendations. Pt would like to think over SNF and have CM hold off on any referrals at this time. Pt reports that ideally she would like to go home. CM to follow. Plan: TBD Date Signed: 04/12/2017 11:35 AM Electronically Signed By:SEAN De La O
[2017-04-12] MEDS ORDERED: NS 500 ML IV ONE (14:12)
[2017-04-12] MEDS ORDERED: NS 500 ML IV PRN (14:27)
[2017-04-12] MEDS ORDERED: CANN-EASE 2 GM TUBE TP PRN (17:47)
--- NOTE | 2017-04-13 07:31 | SOAPPROG ---
SOAP Progress Note Assessment/Plan: POD#4 CABG x 2 (LUNA-LAD, SV-OM1), EVH left thigh Sx CAD with preserved LV systolic fx - s/p CABG. Extubated in the OR. Secondary prevention with ASA, statin, and BB as allowed by BP. Acute expected blood loss anemia - Stable s/p 1U PRBC. DM2 - Controlled on Metformin. Postop hyperglycemia managed with SSI. Resumption of Metformin to begin this evening. Subjective: Still feels weak although has more energy since blood transfusion. Pain well- controlled. Denies dyspnea. Objective: Vital Signs Temp Pulse Resp BP Pulse Ox 37.1 C 83 19 111/65 98 04/13/17 04:00 04/13/17 04:00 04/13/17 04:00 04/13/17 04:00 04/13/17 04:00 Laboratory Results 04/13/17 06:00 04/13/17 06:00 04/12/17 04/13/17 04/14/17 05:59 05:59 05:59 Intake Total 691.5 860 Output Total 650 925 Balance 41.5 -65 PT 12.6 SEC (12.0-15.0) 04/07/17 08:25 INR 0.92 (0.83-1.16) 04/07/17 08:25 Physical Exam - Physical Exam General Appearance: WD/WN, alert, no apparent distress EENT: No scleral icterus (R), No scleral icterus (L) Neck: normal inspection Respiratory: No respiratory distress Cardiac/Chest: regular rate, rhythm Abdomen: non-tender, soft, No distended Skin: normal color, warm/dry Extremities: pedal edema Neuro/Psych: no motor/sensory deficits, alert, normal mood/affect, oriented x 3 ICD10 Worksheet Patient Problems: Problems Problem Status Onset Acute blood loss anemia Acute Angina pectoris Acute Angina pectoris associated with type 2 diabetes mellitus Acute Left main coronary artery disease Acute S/P CABG x 2 Acute ~04/09/17
[2017-04-13] MEDS: INSULIN LISPRO 100 UNIT/ML SC SCH ×3 (08:37→18:50)
[2017-04-13] MEDS: SENNOSIDES/DOCUSATE SODIUM TAB PO SCH (08:39)
[2017-04-13] MEDS: PANTOPRAZOLE SODIUM 40 MG TAB PO SCH (08:39)
[2017-04-13] MEDS: ASPIRIN EC 81 MG TAB PO SCH (08:39)
[2017-04-13] MEDS: ROSUVASTATIN CALCIUM 20 MG TAB PO SCH (08:39)
[2017-04-13] MEDS: METOPROLOL TARTRATE 25 MG TAB PO SCH ×2 (10:00→22:15)
[2017-04-13] MEDS: metFORMIN HCL 500 MG TAB PO SCH (18:02)
[2017-04-13] MEDS: traMADol 50 MG TAB PO PRN (22:16)
[2017-04-14] MEDS: SENNOSIDES/DOCUSATE SODIUM TAB PO SCH (03:20)
--- NOTE | 2017-04-14 06:33 | SOAPPROG ---
SOAP Progress Note Assessment/Plan: Assessment: POD#5 CABG x 2 (LUNA-LAD, SV-OM1), EVH left thigh Sx CAD with preserved LV systolic fx - s/p CABG. Extubated in the OR. Tubes and wires out. No dysrhythmias. Adequate autodiuresis. Secondary prevention with ASA , statin, and BB as allowed by BP. Acute expected blood loss anemia - Stable s/p 1u PRBC. DM2 - Controlled on Metformin. Postop hyperglycemia managed with low dose insulin gtt, transitioning to SSI. Resumption of 1/2 dose metformin yest. Plan: Cont Metoprolol hold for SBP < 100. Resume morning Metformin. Cont inc activity as tolerated. Dispo - Anticipate home +/- HHC tomorrow. 04/14/17 06:32 Subjective: Improving stamina. Morning walk on room air interrupted by desats, but generally moving around better. Appetite improving. +BM. Thinks she'll be ready for home tomorrow. Objective: Vital Signs Temp Pulse Resp BP Pulse Ox 36.9 C 87 12 108/61 85 L 04/14/17 04:00 04/14/17 04:00 04/14/17 04:00 04/14/17 04:00 04/14/17 04:00 Laboratory Results 04/13/17 06:00 04/13/17 06:00 04/13/17 04/14/17 04/15/17 05:59 05:59 05:59 Intake Total 860 250 Output Total 925 500 Balance -65 -250 PT 12.6 SEC (12.0-15.0) 04/07/17 08:25 INR 0.92 (0.83-1.16) 04/07/17 08:25 HR controlled, SBPs > 100 on low dose metop. Almost off suppl O2. Balanced I/Os. - Pending Discharge Pending Discharge Within 24 Hours: Yes Pending Discharge Date: 04/15/17 Pending Discharge Time: 11:00 Physical Exam - Physical Exam General Appearance: alert, no apparent distress Respiratory: lungs clear (grossly) Cardiac/Chest: regular rate, rhythm, other (Sternotomy and LLE venotomies CDI) Abdomen: non-tender, soft Skin: warm/dry Extremities: other (no visible edema) ICD10 Worksheet Patient Problems: Problems Problem Status Onset Acute blood loss anemia Acute Angina pectoris Acute Angina pectoris associated with type 2 diabetes mellitus Acute Left main coronary artery disease Acute S/P CABG x 2 Acute ~04/09/17
[2017-04-14] MEDS: INSULIN LISPRO 100 UNIT/ML SC SCH ×4 (07:22→18:20)
[2017-04-14] MEDS: ROSUVASTATIN CALCIUM 20 MG TAB PO SCH (08:23)
[2017-04-14] MEDS: ASPIRIN EC 81 MG TAB PO SCH (08:23)
[2017-04-14] MEDS: metFORMIN HCL 500 MG TAB PO SCH ×2 (08:23→18:23)
[2017-04-14] MEDS: METOPROLOL TARTRATE 25 MG TAB PO SCH ×2 (08:23→21:59)
[2017-04-14] MEDS: PANTOPRAZOLE SODIUM 40 MG TAB PO SCH (08:24)
[2017-04-14] MEDS ORDERED: SENNOSIDES/DOCUSATE SODIUM TAB PO PRN (09:00)
--- NOTE | 2017-04-14 12:31 | ASMTCMCOM ---
CM Note CM Note Notes: 04/14/2017 Case Management Note Met w/pt to discuss PT recommendation for Home Care. Pt in agreement with need. After discussing agency options pt requested referral to [facility]. Faxed referral to [facility] and notified on the phone. [facility] accepted pt. Confirmed address and phone number. [facility] MD Dr. Jolene Bella. Case Management d/c poc: [facility] home care Case Management available if needs change. Date Signed: 04/14/2017 12:31 PM Electronically Signed By:Gypsy Pineda RN
[2017-04-15 05:28] VITALS: O2SAT 92
--- NOTE | 2017-04-15 07:25 | SOAPPROG ---
SOAP Progress Note Assessment/Plan: POD#6 CABG x 2 (LUNA-LAD, SV-OM1), EVH left thigh Sx CAD with preserved LV systolic fx - s/p CABG. Extubated in the OR. Secondary prevention with ASA, statin, and BB. Acute expected blood loss anemia - Stable s/p 1U PRBC. DM2 - Controlled on Metformin at home. Postop hyperglycemia managed with SSI and now transitioned back to Metformin. Disposition - home today without services. Objective: Vital Signs Temp Pulse Resp BP Pulse Ox 36.6 C 85 16 120/83 H 92 04/15/17 04:00 04/15/17 04:00 04/15/17 04:00 04/15/17 04:00 04/15/17 04:00 Laboratory Results 04/13/17 06:00 04/13/17 06:00 04/14/17 04/15/17 04/16/17 05:59 05:59 05:59 Intake Total 250 450 Output Total 500 300 Balance -250 150 PT 12.6 SEC (12.0-15.0) 04/07/17 08:25 INR 0.92 (0.83-1.16) 04/07/17 08:25 ICD10 Worksheet Patient Problems: Problems Problem Status Onset Acute blood loss anemia Acute Angina pectoris Acute Angina pectoris associated with type 2 diabetes mellitus Acute Left main coronary artery disease Acute S/P CABG x 2 Acute ~04/09/17
[2017-04-15] MEDS: metFORMIN HCL 500 MG TAB PO SCH (08:04)
[2017-04-15] MEDS: INSULIN LISPRO 100 UNIT/ML SC SCH (08:04)
[2017-04-15] MEDS: ASPIRIN EC 81 MG TAB PO SCH (08:04)
[2017-04-15] MEDS: ROSUVASTATIN CALCIUM 20 MG TAB PO SCH (08:04)
[2017-04-15] MEDS: PANTOPRAZOLE SODIUM 40 MG TAB PO SCH (08:04)
[2017-04-15 08:07] VITALS: BP 136/74; PULSE 89; RESP 13; TEMP 97.5
[2017-04-15] MEDS: METOPROLOL SUCCINATE XR 25 MG TAB PO SCH (08:09)
--- NOTE | 2017-04-15 08:25 | PDHOMEO2F ---
Home Oxygen Face to Face Home Orders: I certify that a physician or a nurse practitioner or physician's mailing machine assistant has had a [id number] encounter with this patient on the date of this order due to the diagnosis listed, which relates to the primary reason the patient requires home oxygen. Alternative treatments have been tried, or considered, and deemed ineffective. It is anticipated that supplemental oxygen will result in improvement with treatment. Home oxygen qualifying diagnosis: hypoxemia, atelectasis, pleural effusion, dyspnea Home oxygen secondary diagnosis: s/p CABG SpO2 on room air (%): 85 Frequency of home oxygen needed: continuous Home oxygen liters per minute: 2 Home oxygen delivery device: nasal cannula Concentrator: Yes E-tanks for mobility and back up: Yes If ordering portable O2, is the patient mobile in the home?: Yes I certify that, based on these findings, the home oxygen is medically necessary for this patient for the following length of time. Length of time home oxygen needed: 1 month
--- NOTE | 2017-04-15 15:00 | PDDCSUM ---
Discharge Summary Discharge Summary: ADMISSION DATE: 04/07/17 DISCHARGE DATE: 04/15/17 DISCHARGE DX: 1. Coronary atherosclerotic disease with unstable angina 2. Acute blood loss anemia PROCEDURES 04/09/17, Sherlyn Logan: 1. CABGx2 (LUNA-LAD, SVG-OM) HOSPITAL COURSE BY PROBLEM LIST 1. CAD with unstable angina - s/p CABGx2. Beta gabriele, aspirin, and statin continued for secondary prevention. 2. Acute blood loss anemia - stable s/p 1 PRBC transfused CONDITION Good DISPOSITION Home ACTIVITY Pt was instructed on sternal precautions, activity limitations, and which problems to call [facility] with. Please see Discharge Plan in chart for specifics. DISCHARGE MEDICATIONS Continue: 1. Aspirin EC [Aspirin EC 81 mg (*)] 81 mg PO DAILY 2. Hydrochlorothiazide [HCTZ (*)] 12.5 mg PO DAILY 3. Metoprolol Succinate Xr [Toprol Xl 25 mg (*)] 25 mg PO DAILY 4. Rosuvastatin Calcium [Crestor 20mg (*)] 20 mg PO DAILY 5. metFORMIN HCL [Glucophage 1000 mg] 1,000 mg PO DAILY 6. metFORMIN HCL [Glucophage 500 mg (*)] 500 mg PO DAILY18 New: 1. Acetaminophen [Tylenol 325mg (*)] 325 - 650 mg PO Q4HRS PRN 2. traMADol [Ultram 50 mg (*)] 25 - 50 mg PO Q6HRS PRN PENDING STUDIES/LABS 1. CXR prior to follow-up F/U APPOINTMENTS 1. Andrew Donovan - 04/20/17, 10:45 AM
--- NOTE | 2017-04-15 15:26 | ASDISCHSUM ---
Discharge Information Plan Status:Home with No Needs Medically Cleared to Leave:04/14/2017 Discharge Date:04/15/2017 12:00 PM D/C Disposition:Home Health Service [facility] D/C Disposition:Home, Routine, Self-Care Projected Discharge Date:04/15/2017 11:00 AM Transportation at D/C:Family Discharge Delay Reason: Follow-Up Date:04/15/2017 11:00 AM Discharge Slot: Final Diagnosis: Placement Information Referral Type:*Home Health Care Services Referral ID:[id number] Provider Name: Address 1: Phone Number: Address 2: Fax Number: City: Selection Factors: State: Patient Contact Information Contact Name:TASIA Relationship: Address:[address] City:[place] Alternate Phone: [facility] Code:[place] [address] Email: Financial Information Financial Class:Medicare Advantage Plans Primary Plan Desc:[facility] [employer] Primary Plan Number:[id number] Secondary Plan Desc: Secondary Plan Number: Assessment Information [facility] Initial CM Assessment Living Arrangements What is your living Answers: With Spouse arrangement? Who do you live with? Type Of Residence What kind of residence do Answers: House you live in? Discharge Plan Comments Coordination Status Comments Notes: Pt is a 67 y/o female that will have an open heart surgery tomorrow. Needs are TBD at this time. CM to follow for d/c needs. Plan: TBD Date Signed: 04/08/2017 10:11 AM Electronically Signed By:SEAN De La O [facility] CM Progress Note CM Note CM Note Notes: PT recommending HC; OT=SNF; CM to follow. Date Signed: 04/11/2017 05:22 PM Electronically Signed By:Loren Mendoza LCSW [facility] CM Progress Note CM Note CM Note Notes: CM spoke w/ OT and INA Rodriguez regarding d/c POC. Both are recommending SNF at this time. CM met w/ pt for dispo planning. CM informed pt of the recommendations. Pt would like to think over SNF and have CM hold off on any referrals at this time. Pt reports that ideally she would like to go home. CM to follow. Plan: TBD Date Signed: 04/12/2017 11:35 AM Electronically Signed By:SEAN De La O [facility] CM Progress Note CM Note CM Note Notes: 04/14/2017 Case Management Note Met w/pt to discuss PT recommendation for Home Care. Pt in agreement with need. After discussing agency options pt requested referral to [facility]. Faxed referral to [facility] and notified on the phone. [facility] accepted pt. Confirmed address and phone number. [place]. Case Management d/c poc: [facility] home care Case Management available if needs change. Date Signed: 04/14/2017 12:31 PM Electronically Signed By:Gypsy Pineda RN Case Management Discharge Plan Note Case Management Discharge Discharge Order Complete? Answers: Yes Patient to Obtain Answers: Independently Medications Transportation Arranged Answers: Family/Friends EMTALA Complete Answers: No Case Management Transport Answers: No Form Complete Faxed Final Orders Answers: No Agency/Facility Transfer Answers: No Report Printed & Faxed to Receiving Agency Family Notified Answers: No Discharge Comments Notes: Pt is being discharged today. CM spoke w/ [place] RN regarding d/c POC. Per Dr. Donovan's team, pt will d/c independent with outpatient cardiac rehab. CM notified [facility] that their services are not needed. CM available for changes. Plan: Independent Date Signed: 04/15/2017 11:55 AM Electronically Signed By:SEAN De La O Intervention Information Intervention Type:*IM-Signed Date of Service:04/15/2017 12:02 PM Patient Type:Inpatient Staff Member:Cathi Menendez Hours: Discipline: Severity: Comment:
== END 2017-04-15 12:00 | disposition home or self-care (01) | DRG 234 ==
LOC: FCATH 07:44 → F2W 10:48 → F2N 04-09 12:01 → F2W 04-11 15:05
PROVIDERS: ADMIT Surgery; ATTEND Surgery
PROC: B2151ZZ Fluoroscopy of Left Heart using Low Osmolar Contrast (ICD-10-PCS; 2017-04-07)
PROC: B2111ZZ Fluoroscopy of Multiple Coronary Arteries using Low Osmolar Contrast (ICD-10-PCS; 2017-04-07)
PROC: 4A023N7 Measurement of Cardiac Sampling and Pressure, Left Heart, Percutaneous Approach (ICD-10-PCS; 2017-04-07)
PROC: 30233N1 Transfusion of Nonautologous Red Blood Cells into Peripheral Vein, Percutaneous Approach (ICD-10-PCS; principal; 2017-04-09 07:15)
PROC: 021009W Bypass Coronary Artery, One Artery from Aorta with Autologous Venous Tissue, Open Approach (ICD-10-PCS; principal; 2017-04-09 07:15)
PROC: 02100Z9 Bypass Coronary Artery, One Artery from Left Internal Mammary, Open Approach (ICD-10-PCS; principal; 2017-04-09 07:15)
PROC: 06BQ4ZZ Excision of Left Saphenous Vein, Percutaneous Endoscopic Approach (ICD-10-PCS; principal; 2017-04-09 07:15)
PROC: 5A1221Z Performance of Cardiac Output, Continuous (ICD-10-PCS; principal; 2017-04-09 07:15)
DX: I25.110 Atherosclerotic heart disease of native coronary artery with unstable angina pectoris (principal); D62 Acute posthemorrhagic anemia; E11.9 Type 2 diabetes mellitus without complications; E66.9 Obesity, unspecified; I10 Essential (primary) hypertension; E78.5 Hyperlipidemia, unspecified; Z79.84 Long term (current) use of oral hypoglycemic drugs; Z82.49 Family history of ischemic heart disease and other diseases of the circulatory system
CPT/HCPCS: 82947-QW; 85520-90; 97110-GP; 97116-GP; 97161-GP; 97166-GO; 97535-GO; C1769; G8978-GP-CK; G8979-GP-CI; G8987-GO-CL; G8988-GO-CI; J0153; J0282; J0690; J1100; J1170; J1265; J1644; J1815; J1940; J2001; J2150; J2250; J2260; J2370; J2405; J2440; J2704; J2720; J2765; J2930; J3010; J3370; J7060; P9016; P9041; Q9967

== ENCOUNTER → 2017-04-20 | Outpatient (CLI) | payer OTHER | LOC: FLAB 09:37 | PROVIDERS: ATTEND Thoracic Surgery (Cardiothoracic Vascular Surgery) | DX: Z09 Encounter for follow-up examination after completed treatment for conditions other than malignant neoplasm (principal); Z95.1 Presence of aortocoronary bypass graft; J90 Pleural effusion, not elsewhere classified ==

== ENCOUNTER → 2017-05-11 | Outpatient (CLI) | payer OTHER | LOC: FIMAGING 13:22 | PROVIDERS: ATTEND Internal Medicine Cardiovascular Disease | DX: R05 Cough (principal) ==

== ENCOUNTER → 2017-09-28 | Outpatient (CLI) | payer OTHER | LOC: CIMAGING 08:54 | PROVIDERS: ATTEND Family Medicine | DX: Z12.31 Encounter for screening mammogram for malignant neoplasm of breast (principal) ==

== ENCOUNTER 2018-01-17 13:42 | Outpatient (CLI) | payer OTHER ==
[2018-01-17] MEDS ORDERED: MIDAZOLAM 2 MG/2 ML VIAL IVP PRN (14:33)
[2018-01-17] MEDS ORDERED: NALOXONE HCL 0.4 MG/ML INJ IVP PRN (14:33)
[2018-01-17] MEDS ORDERED: fentaNYL 100 MCG/2 ML INJ IVP PRN (14:33)
[2018-01-17] MEDS ORDERED: FLUMAZENIL 0.5 MG/5 ML MDV IVP PRN (14:33)
[2018-01-17] MEDS ORDERED: NS 1,000 ML IV SCH (14:45)
--- NOTE | 2018-01-17 15:30 | PDPROPOC ---
Sedation Plan of Care Sedation Plan of Care: vital signs stable, mental status noted, patient educated of risks, benefits, alternatives, patient can tolerate sedation ASA Classification: ASA 1 Planned drugs: fentanyl, midazolam Mallampati Score: Class 3 Mallampati Reference Image: Patient passed 3-3-2 rule?: Yes
[2018-01-17] MEDS ORDERED: ONDANSETRON 4 MG/2 ML VIAL IVP PRN (16:22)
[2018-01-17] MEDS ORDERED: ACETAMINOPHEN 325 MG TAB PO PRN (16:22)
[2018-01-17 17:04] VITALS: BP 131/80
== END 2018-01-17 17:20 | disposition home or self-care (01) ==
LOC: FIMAGING 13:42
PROVIDERS: ATTEND Psychiatry & Neurology Neurology
DX: R90.82 White matter disease, unspecified (principal)
CPT/HCPCS: 70551; J2250; J3010

== ENCOUNTER → 2018-02-17 | Outpatient (CLI) | payer OTHER | LOC: FIMAGING 11:29 | PROVIDERS: ATTEND Orthopaedic Surgery | DX: M17.11 Unilateral primary osteoarthritis, right knee (principal) ==

== ENCOUNTER 2018-03-16 08:00 | Observation (INO) | payer OTHER ==
[2018-04-22] MEDS ORDERED: ROPIVACAINE 0.2% 80 MG, EPINEPHrine 0.2 MG, KETOROLAC TROMETHAMINE 30 MG in SYRINGE 0 ML IU ONE (06:00)
[2018-04-22] MEDS ORDERED: TRANEXAMIC ACID 3,000 MG in NS (SYRINGE) 50 ML IRR ONE (06:00)
[2018-04-22] MEDS ORDERED: ceFAZolin 2 GM/DEXTROSE 100 ML IV ONE (06:05)
[2018-04-22] MEDS ORDERED: LR 1,000 ML IV ONE (06:05)
[2018-04-22] MEDS ORDERED: ACETAMINOPHEN 325 MG TAB PO ONE (06:05)
[2018-04-22] MEDS ORDERED: FAMOTIDINE 20 MG TAB PO ONE (06:05)
--- NOTE | 2018-04-22 06:18 | PDANEPAE ---
ANE History of Present Illness R total knee arthroplasty. ANE Past Medical History - Cardiovascular History Hx Hypertension: Yes Hx Arrhythmias: No Hx Chest Pain: Yes Hx Coronary Artery / Peripheral Vascular Disease: Yes Hx CHF / Valvular Disease: No Hx Palpitations: No Cardiovascular History Comment: CAD. hx of CABG x2v with Maria C 04/09/17. hyperlipidemia. htn. followed by [facility] - Pulmonary History Hx COPD: No Hx Asthma/Reactive Airway Disease: No Hx Recent Upper Respiratory Infection: No Hx Oxygen in Use at Home: No Hx Sleep Apnea: No Sleep Apnea Screening Result - Last Documented: Negative - Neurologic History Hx Cerebrovascular Accident: No Hx Seizures: No Hx Dementia: No Neurologic History Comment: recent diagnosis of parkinsons - Endocrine History Hx Diabetes: Yes Hypothyroid: No Hyperthyroid: No Obesity: mild Endocrine History Comment: type 2, for about 10 years - Renal History Hx Renal Disorders: No Renal History Comment: hx of kidney stones - Liver History Hx Hepatic Disorders: No - Neurological & Psychiatric Hx Hx Neurological and Psychiatric Disorders: Yes Neurological / Psychiatric History Comment: parkinsons. tremors to right arm - Cancer History Hx Cancer: No - Congenital Disorder History Hx Congenital Disorders: No - GI History GERD: no Hx Gastrointestinal Disorders: No - Other Health History Other Health History: wears glasses - Chronic Pain History Chronic Pain: Yes (right knee) - Surgical History Prior Surgeries: cabg x2 with maria c 04/09/18. left breast lumpectomy . T&A. Meg. R knee scope. Left Hand ANE Review of Systems Review of Systems: - Exercise capacity METS (RN): 4 METS ANE Patient History - Allergies Allergies/Adverse Reactions: meperidine HCl [From Demerol] Allergy (Verified 04/20/18 15:23) feels weird when i take tramadol Allergy (Verified 04/20/18 15:23) muscle spasms - Home Medications Home Medications: Aspirin [Aspirin 81mg (*)] 81 mg PO DAILY 04/20/18 [Last Taken 1 Day Ago ~] Carbidopa/Levodopa 25/100Mg [Sinemet 25/100 MG (*)] 1 tab PO TID@0730,12,19 12/29 [Last Taken 04/22/18 05:00] Hydrochlorothiazide [HCTZ (*)] 25 mg PO DAILY 04/20/18 [Last Taken 1 Day Ago ~] Losartan Potassium [Cozaar 25 mg (*)] 25 mg PO DAILY 04/20/18 [Last Taken 1 Day Ago ~04/21/18] Metoprolol Succinate Xr [Toprol Xl 25 mg (*)] 25 mg PO DAILY 04/20/18 [Last Taken 04/22/18 05:00] Rosuvastatin Calcium [Crestor 20mg (*)] 20 mg PO HS 04/20/18 [Last Taken 1 Day Ago ~04/21/18] metFORMIN HCL [Glucophage 500 mg (*)] 1,000 mg PO BIDMEAL 04/20/18 [Last Taken 04/20/18] - Anes Hx Anes Hx: no prior problems - Smoking Hx Smoking Status: Never smoked Marijuana use: No - Alcohol Use Alcohol Use: Rarely - Family Anes Hx Family Anes Hx: none Family Hx Anesthesia Complications: none ANE Labs/Vital Signs - Vital Signs Blood Pressure: 122/77 Heart Rate: 75 O2 Sat (%): 94 Height: 166.37 cm Weight: 79.832 kg ANE Physical Exam - Airway Neck exam: decreased ROM (with lateral rotation) Mallampati Score: Class 2 - Pulmonary Pulmonary: clear to auscultation - Cardiovascular Cardiovascular: regular rate and rhythym - ASA Status ASA Status: II ANE Anesthesia Plan Anesthesia Plan: spinal Regional Anesthesia: adductor canal FNB
--- NOTE | 2018-04-22 06:21 | PDHPUP ---
History & Physical Update H&P update statement: This history and physical update is based on an assessment of the patient which was completed after admission or registration (within 24 hours), but prior to the surgery/procedure. H&P update: H&P reviewed & patient examined, no change in patient's condition since H&P completed
[2018-04-22] MEDS ORDERED: TRANEXAMIC ACID 3,000 MG/50 ML BAG IRR ONE (06:36)
[2018-04-22] MEDS ORDERED: MIDAZOLAM 2 MG/2 ML VIAL IVP ONE ×2 (07:21→08:22)
[2018-04-22] MEDS ORDERED: BUPIVACAINE/DEXTROSE 7.5MG/ML 2 ML SPINAL AMP SP ONE (07:26)
[2018-04-22] MEDS ORDERED: fentaNYL 100 MCG/2 ML INJ ONE (07:26)
[2018-04-22] MEDS ORDERED: PROPOFOL 200 MG/20 ML VIAL ONE ×2 (07:26→08:50)
[2018-04-22] MEDS ORDERED: oxyCODONE IR 5 MG TAB PO PRN (08:43)
[2018-04-22] MEDS ORDERED: METOCLOPRAMIDE 10 MG/2 ML VIAL IVP PRN (08:43)
[2018-04-22] MEDS ORDERED: MAGNESIUM HYDROXIDE 30 ML UDCUP PO PRN (08:43)
[2018-04-22] MEDS ORDERED: diphenhydrAMINE 25 MG CAP PO PRN (08:43)
[2018-04-22] MEDS ORDERED: BISACODYL 10 MG SUPP PR PRN (08:43)
[2018-04-22] MEDS ORDERED: DIPHENOXYLATE/ATROPINE LOMOTIL 1 TAB PO PRN (08:43)
[2018-04-22] MEDS ORDERED: ONDANSETRON 4 MG/2 ML VIAL IVP PRN ×2 (08:43→09:26)
[2018-04-22] MEDS ORDERED: D50W 25 GM/50 ML SYR IVP PRN (08:43)
[2018-04-22] MEDS ORDERED: LACTULOSE 20 GM/30 ML UDCUP PO PRN (08:43)
[2018-04-22] MEDS ORDERED: POLYETHYLENE GLYCOL 3350 17 GM PKT PO PRN (08:43)
[2018-04-22] MEDS ORDERED: PROMETHAZINE HCL 25 MG/ML INJ IVP PRN (08:43)
[2018-04-22] MEDS ORDERED: PROMETHAZINE HCL 25 MG SUPPR PR PRN (08:43)
[2018-04-22] MEDS ORDERED: TEMAZEPAM 15 MG CAP PO PRN (08:43)
[2018-04-22] MEDS ORDERED: ONDANSETRON DISINTEGRATING 4 MG TAB PO PRN (08:43)
[2018-04-22] MEDS ORDERED: clonIDINE 1 MG/10 ML VIAL EP ONE (08:47)
[2018-04-22] MEDS ORDERED: ROPIVACAINE HCL 150 MG/30 ML INJ ONE (08:47)
[2018-04-22] MEDS ORDERED: LR 1,000 ML IV SCH (09:00)
[2018-04-22] MEDS ORDERED: NALOXONE HCL 0.4 MG/ML INJ IVP PRN (09:26)
[2018-04-22] MEDS ORDERED: HYDROmorphONE/DILAUDID 2 MG/ML INJ IVP PRN (09:26)
[2018-04-22] MEDS ORDERED: fentaNYL 100 MCG/2 ML INJ IVP PRN (09:26)
--- NOTE | 2018-04-22 09:36 | POSTOPPROG ---
Post Op Note Date of Operation: 04/22/18 Surgeon: Imelda Baird Plumbing Assembler: Jessy Padilla PA-C and Aleshia Baird PA-C Anesthesiologist: dr. newman Anesthesia: Spinal, Other (Specify) (adductor canal block) Pre-op Diagnosis: right knee OA Post-op Diagnosis: same Indication: right knee pain Procedure: R TKA robot assisted and sensor assisted Findings: severe knee OA Inf/Abcess present in the surg proc area at time of surgery?: No EBL: 50-100
--- NOTE | 2018-04-22 09:49 | POSTANESTH ---
Post Anesthetic Evaluation Cardiovascular Status: Similar to Pre-Op Cond Respiratory Status: Normal, Stable Level of Consciousness/Mental Status: Can Participate in Eval Pain Control: Adequate, Prn Tx Ordered Nausea/Vomiting Control: Adequate, Prn Tx Ordered Complications Possibly Related to Anesthesia: None Noted
[2018-04-22] MEDS: INSULIN REGULAR HUMAN 100 UNIT/ML UNIT SC SCH ×3 (12:20→21:59)
[2018-04-22] MEDS: ACETAMINOPHEN 325 MG TAB PO SCH ×3 (12:20→22:59)
[2018-04-22] MEDS: LOSARTAN POTASSIUM 25 MG TAB PO SCH (12:24)
[2018-04-22] MEDS: SENNOSIDES/DOCUSATE SODIUM TAB PO SCH ×2 (12:24→21:56)
[2018-04-22] MEDS: CARBIDOPA/LEVODOPA 25 MG/100 MG TAB PO SCH ×2 (13:04→18:14)
[2018-04-22] MEDS: ceFAZolin 2 GM/DEXTROSE 100 ML IV SCH ×2 (15:57→22:04)
[2018-04-22] MEDS: metFORMIN HCL 500 MG TAB PO SCH (18:15)
--- NOTE | 2018-04-22 19:30 | GOP ---
DATE OF OPERATION: 04/22/2018 SURGEON: Aleks Baird MD EDISCOVERY PROJECT MANAGER: MURIEL Flowers ANESTHESIA: Spinal. PREOPERATIVE DIAGNOSIS: Right knee osteoarthritis. POSTOPERATIVE DIAGNOSIS: Right knee osteoarthritis. PROCEDURE PERFORMED: Right total knee arthroplasty with computer navigation, robotic assist. FINDINGS: ESTIMATED BLOOD LOSS: 30 cc. INDICATIONS: The patient is a 68-year-old female with severe and progressive pain and deformity of the right knee unresponsive to conservative care. The risks and benefits of surgical intervention were explained in detail. DESCRIPTION OF PROCEDURE: The patient was brought to the operative room and placed on the table in the supine position. Spinal anesthesia was induced without difficulty. A pneumatic tourniquet was applied about the right proximal thigh, and the leg was prepped and draped in a sterile fashion. The leg baer was applied. After exsanguination by elevation the tourniquet was inflated to 250 mmHg. Incision was made anterior medial from the tibial tuberosity to a point 2 cm cm proximal to the superior pole of the patella. Medial parapatellar arthrotomy was carried out from the superior pole of the patella and posteriorly in line with the fibers of the Type II VMO. The medial collateral ligament was elevated and the infrapatellar fat pad was resected. The patella was everted and the articular surface was excised. A 35 mm patellar button was placed. Attention was turned first to the distal aspect of the femur. After exposure of the femur, 2 half pins were placed for fixation of the femoral array. In a similar fashion, 2 pins were placed anteromedial on the tibia for fixation of the tibial array. External land marking and registration of the hip center was performed without difficulty. Internal femoral and tibial registration was carried out without difficulty and the femoral and tibial checkpoints were placed and verified for accuracy. Attention was turned to the femur. The foot print for the size 4 femoral component was cut with the saw using the [employer] robotic system and verified for accuracy against the CT based plan. In a similar fashion, the saw was used to cut the footprint for the 4 tibial component using the LI system and verified for accuracy against the CT based plan. The tibial articular surface was excised without difficulty, followed by the intercondylar box cut. The knee was extended and the remnants of the medial and lateral meniscus were excised. The posterior capsule was injected with ropivacaine, epinephrine and Toradol. A tibial tray was positioned. Trial reduction was then carried out. There was excellent range of motion, alignment, and stability using the 11mm polyethylene. All trials were then removed. The joint was thoroughly irrigated and carefully dried. The pressfit components were implanted. The permanent 11 mm polyethylene was placed without difficulty. The tourniquet was deflated and all bleeders were coagulated. The wound was thoroughly irrigated and closed using interrupted sutures of 2-0 Vicryl for the joint capsule. The subcu was closed with 3-0 Vicryl and the skin with 4-0 Monocryl. Dermabond and Steri-Strips were applied followed by a compressive dressing. The patient was then moved from the operating room to the recovery room in good condition, having tolerated the procedure well. PATHOLOGY: Severe tricompartmental osteoarthritis. /[id number]/MODL MTDD
[2018-04-22] MEDS ORDERED: ROSUVASTATIN CALCIUM 20 MG TAB PO SCH (21:00)
[2018-04-22] MEDS: ASPIRIN 81 MG CHEWABLE TAB PO SCH (21:56)
[2018-04-22] MEDS: FAMOTIDINE 20 MG TAB PO SCH (21:56)
[2018-04-22] MEDS: CYCLOBENZAPRINE 10 MG TAB PO PRN (21:56)
[2018-04-23] MEDS: ACETAMINOPHEN 325 MG TAB PO SCH (05:14)
[2018-04-23] MEDS: CYCLOBENZAPRINE 10 MG TAB PO PRN (05:15)
[2018-04-23 08:49] VITALS: BP 143/72
[2018-04-23] MEDS: SENNOSIDES/DOCUSATE SODIUM TAB PO SCH (08:51)
[2018-04-23] MEDS: FAMOTIDINE 20 MG TAB PO SCH (08:51)
[2018-04-23] MEDS: ASPIRIN 81 MG CHEWABLE TAB PO SCH (08:51)
[2018-04-23] MEDS: CARBIDOPA/LEVODOPA 25 MG/100 MG TAB PO SCH (08:51)
[2018-04-23] MEDS: metFORMIN HCL 500 MG TAB PO SCH (08:52)
[2018-04-23] MEDS: LOSARTAN POTASSIUM 25 MG TAB PO SCH (08:52)
[2018-04-23] MEDS: INSULIN REGULAR HUMAN 100 UNIT/ML UNIT SC SCH (08:53)
[2018-04-23] MEDS ORDERED: METOPROLOL SUCCINATE XR 25 MG TAB PO SCH (09:00)
[2018-04-23] MEDS ORDERED: HYDROCHLOROTHIAZIDE 25 MG TAB PO SCH (09:00)
--- NOTE | 2018-04-23 10:30 | SOAPPROG ---
SOAP Progress Note Assessment/Plan: Assessment: Patient is doing well POD 1 s/p R TKA Pain management: pain is well controlled on oral pain meds. VTE ppx: recommend 81 mg aspirin morning and evening for 4 weeks, cont RAMA and SCDs Anemia: level is expected initially postop. Asymptomatic. Continue to monitor D/c planning:patient has done much better than anticipated. Patient is stable, BP stable, pain well controlled and patient is eager for discharge to home. August d/c to home today pending release from PT Plan: 04/23/18 10:29 Subjective: patient is doing well today, denies SOB ,chest pain and N/V Objective: Vital Signs Temp Pulse Resp BP Pulse Ox 36.4 C 65 16 143/72 H 96 04/23/18 08:00 04/23/18 08:00 04/23/18 08:00 04/23/18 08:00 04/23/18 08:00 Laboratory Results 04/23/18 04:25 04/22/18 04/23/18 04/24/18 05:59 05:59 05:59 Intake Total 3345 Output Total 980 Balance 2365 RLE: incision dressing is clean and dry, NVI, +pf/df ICD10 Worksheet Patient Problems: Problems Problem Status Onset Primary localized osteoarthritis of right knee Acute Acute blood loss anemia Acute Angina pectoris Acute Angina pectoris associated with type 2 diabetes mellitus Acute Left main coronary artery disease Acute S/P CABG x 2 Acute ~04/09/17
--- NOTE | 2018-04-23 10:42 | ASMTLACE ---
LACE Length of stay for Answers: Less than 1 day current admission Acuity / Level of Answers: No Care: Did the patient have an inpatient admission? Comorbidities - select Answers: Coronary Artery Disease all that apply Diabetes (uncontrolled or controlled) Other Notes: HTN # of Emergency department Answers: 0 visits in the last 6 months Score: 4 Date Signed: 04/23/2018 10:42 AM Electronically Signed By:Marjorie Ray
--- NOTE | 2018-04-23 11:04 | GDS ---
ADMISSION DIAGNOSIS: Right knee arthritis. DISCHARGE DIAGNOSIS: Right knee arthritis PROCEDURE: Right total knee arthroplasty, robotic assisted. VTE PROPHYLAXIS: Recommend aspirin 81 mg twice daily for 4 weeks. BRIEF DESCRIPTION OF HOSPITAL STAY: Patient was admitted for an elective joint arthroplasty. The pa red tolerated the procedure well and has passed physical therapy. The patient was given appropriat e antibiotic prophylaxis and venous thromboembolism prophylaxis. The patient's pain was well control led on oral pain medication, patient was holding down food, and had urinated. Decision was made to d ischarge the patient. The patient was given post-operative prescriptions pre-operatively. PLAN: To follow up with Dr. Baird at [facility] May 12, 2018 at 10:30 a.m . /[id number]/MODL
== END 2018-04-23 11:18 | disposition home or self-care (01) ==
LOC: F3N 04-22 05:47 → EDSTATUS 04-22 07:15 → F3N 04-22 10:28
PROVIDERS: ADMIT Orthopaedic Surgery; ATTEND Orthopaedic Surgery
PROC: 0SRC0JA Replacement of Right Knee Joint with Synthetic Substitute, Uncemented, Open Approach (ICD-10-PCS; principal; 2018-04-22 08:00)
PROC: 8E0Y0CZ Robotic Assisted Procedure of Lower Extremity, Open Approach (ICD-10-PCS; principal; 2018-04-22 08:00)
DX: M17.11 Unilateral primary osteoarthritis, right knee (principal)
CPT/HCPCS: 27447; 73560; 88311; 97116; 97161; 97530; G0378; J0171; J0690; J0735; J1815; J1885; J2250; J2704; J2795; J3010